=== PATIENT | male | born 1960 | race Caucasian/White ===

== ENCOUNTER 2021-03-06 10:36 | Emergency (ER) | payer MEDICARE, MEDICAID, SELFPAY ==
[2021-03-06 11:00] VITALS: BP 113/79; PULSE 81; RESP 16; TEMP 36.6; O2SAT 97
--- NOTE | 2021-03-06 12:19 | ED.SKABFB ---
HPI - Skin/Abscess/Foreign Bdy General Chief complaint: Skin/Abscess/Foreign Body Stated complaint: sore inside his rt thigh/rash Time Seen by Provider: 03/06/21 10:42 Source: patient Mode of arrival: wheelchair Limitations: dementia and other (Developmental disabled, autism) History of Present Illness HPI narrative: 60-year-old man with a history of type 2 diabetes mellitus brought in today by his caregiver for a rash in his groin area, on his penis, and an ulceration on his right medial leg. This has been present for a few weeks. Patient is incontinent of urine. He has had no fever, vomiting, diarrhea, difficulty breathing, appetite change or abdominal pain. Family states that he frequently does not complain of pain when he has issues. His incontinence occurs mostly while he is wearing Depends. complaint: rash and lesion Onset (ago): week(s) Tetanus up to date: unsure Location: buttocks and genitals Severity: moderate Relieving factors: none Exacerbating factors: none Associated symptoms: denies other symptoms Treatments prior to arrival: OTC topical medication Related Data Home Medications Medication Instructions Recorded Confirmed Humulin R Regular U-100 Insuln See Rx Instructions .ROUTE .COMPLEX 03/06/21 03/06/21 Sentry 1 tablet PO DAILY 03/06/21 03/06/21 atorvastatin 20 mg PO DAILY 03/06/21 03/06/21 clopidogrel 75 mg PO DAILY 03/06/21 03/06/21 docusate sodium 100 cap PO DAILY 03/06/21 03/06/21 insulin glargine [Lantus Solostar 18 unit SUBCUT HS 03/06/21 03/06/21 U-100 Insulin] lisinopril 5 mg PO DAILY 03/06/21 03/06/21 metformin 500 mg PO BID 03/06/21 03/06/21 Allergies Allergy/AdvReac Type Severity Reaction Status Date / Time No Known Allergies Allergy Verified 03/06/21 13:01 Review of Systems Review of Systems: ROS unobtainable: Yes other (Disabled, denies any complaints. Family denies any other symptoms.) [facility]LY [facility] Past Medical History Medical History Autism Dementia Gout Hyperlipidemia Hypertension Type 2 diabetes mellitus Social History Social History (Updated 03/06/21 @ 13:33 by Brayden Steele MD) Smoking status: Never smoker Alcohol intake: never Substance use: never Living arrangements: with family Exam Const: General: healthy appearing, no acute distress and alert HENMT: Head: normal to inspection Mouth: Yes moist mucous membranes Eyes: Conjunctivae: conjunctivae normal Pupils: Equal, round and reactive pupils present EOM: EOMs intact bilaterally Resp: Effort & Inspection: normal respiratory effort Auscultation: clear to auscultation bilaterally, no rales, no rhonchi and no wheezes Cardio: Rate: regular rate Rhythm: regular rhythm Heart sounds: no murmurs GI: GI Palp: Yes Soft to palpation, Yes Tenderness to palpation present (GI) (Mild suprapubic tenderness. Palpable bladder.), No Guarding due to palpation present (GI) and No Rigid due to palpation Auscultation: normal bowel sounds : Other: Diffuse erythema of the medial upper thighs, suprapubic region, penis and medial buttocks with satellite lesions. Medial right upper thigh shows a 2.5 cm diameter ulceration with a dry necrotic base. There is no induration. It is mildly tender. Skin: General skin exam: normal color, no jaundice and no pallor Neuro: General: patient oriented x3, moves all extremities and no focal motor deficits Speech: normal speech Gait exam (Neuro): Normal gait present Extrem: General: normal to inspection and no clubbing, cyanosis or edema Psych: Appearance: grossly normal and well kempt Mental Status: mental status grossly normal Affect: normal affect Attitude: cooperative Thought content: Yes Normal thought content present Course Vital Signs Vital signs: Vital Signs Temperature 36.6 C 03/06/21 11:00 Pulse Rate 81 03/06/21 11:00 Respiratory Rate 16 03/06/21 11:00 Blood Pressure 113/79 03/06/21 11:0
[2021-03-06 13:01] LABS: Add Urine Microscopic? YES; Appearance Urine Clear (Clear); Bilirubin Urine Negative (Negative); Blood Urine Negative (Negative); Color Urine Light Yellow (Yellow); Glucose Urine UA 3+ (Negative); Ketones Urine 1+ (Negative); Leukocyte Esterase Ur Negative (Negative); Nitrate Urine Negative (Negative); Protein Urine Negative (Negative); Urobilinogen Urine 0.2 mg/dL (0.2-1.0)
[2021-03-06 13:11] LABS: Bacteria Urine Trace /hpf; RBC Urine None seen /hpf (0-2); WBC Urine None seen /hpf (0-3)
[2021-03-06 14:04] VITALS: BP 142/93; PULSE 98; RESP 20; O2SAT 98
--- NOTE | 2021-03-06 14:35 | PC.NURSE ---
RN ASSISTED PT TO CAR AND INTO CAR. TOLERATED WELL.
== END 2021-03-06 14:20 | disposition home or self-care (01) ==
PROVIDERS: Emergency Provider Emergency Medicine; PCP Family Medicine
DX: B37.2 Candidiasis of skin and nail (principal); L98.491 Non-pressure chronic ulcer of skin of other sites limited to breakdown of skin; R32 Unspecified urinary incontinence; E78.5 Hyperlipidemia, unspecified; I10 Essential (primary) hypertension; E11.9 Type 2 diabetes mellitus without complications
CPT/HCPCS: 81001; 87086; 87088; 99283

== ENCOUNTER 2021-11-17 19:01 | Observation (INO) | payer MEDICARE, MEDICAID, SELFPAY ==
[2021-11-17] VITALS (7 sets, daily range): BP systolic 92–129; BP diastolic 62–73; PULSE 94–118; RESP 20–28; TEMP 36.9; O2SAT 80–95
--- NOTE | ~2021-11-17 | CT_ITS ---
EXAMINATION: CT soft tissue neck wo con DATE: 11/17/2021 20:32 INDICATION: Difficulty swallowing TECHNIQUE: Computed tomography (CT) of the neck was performed without intravenous contrast. The dose- length product (DLP) was 230.28 mGy-cm. Automated exposure control and iterative reconstruction techn ique were employed. COMPARISON: None FINDINGS: The examination is limited without intravenous contrast. No radiopaque foreign body is iden tified in the esophagus. There is questionable wall thickening of the upper esophagus. There are no p athologically enlarged lymph nodes in the neck. Moderate cervical spondylosis is noted. 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 IMPRESSION: 1. Questionable wall thickening of the upper esophagus. Direct visualization is recommended. Reviewed, dictated and finalized at location F.
--- NOTE | ~2021-11-17 | CT_ITS ---
EXAMINATION: CT diagnostic chest wo con DATE: 11/17/2021 20:31 INDICATION: Difficulty swallowing, concern for aspiration or esophageal foreign body. TECHNIQUE: Computed tomography (CT) of the chest was performed without intravenous contrast. The dose -length product (DLP) was 230.28 mGy-cm. Automated exposure control and iterative reconstruction tech [employer] were employed. COMPARISON: None FINDINGS: The examination is limited by the absence of intravenous contrast. There are patchy nodular , tree-in-bud, and groundglass opacities throughout the lungs, worst in the lower lobes. In the media l aspect of the right lower lobe, there are confluent airspace opacities with some areas of cavitatio n. There is no pleural effusion or pneumothorax. There are mildly enlarged mediastinal and bilateral hilar lymph nodes The heart size is normal. There is moderate thoracic spondylosis. There are mild co mpression deformities of the T10 and T12 vertebral bodies. A stone is present in the nondistended gal lbladder. A healed left-sided rib fracture is noted. No esophageal foreign body is identified. There is questionable wall thickening of the upper esophagus. IMPRESSION: 1. Findings consistent with multifocal pneumonia. Areas of cavitation are seen in the medial aspect o f the right lower lobe which may be related to pneumonia however malignancy can't be obscured. Follow -up CT after appropriate therapy and pneumonia treatment is recommended. 2. Mild mediastinal and hilar lymphadenopathy, likely reactive. 3. Questionable wall thickening of the upper esophagus. Direct visualization is recommended. Reviewed, dictated and finalized at location F. IMPRESSION: 1. Findings consistent with multifocal pneumonia. Areas of cavitation are seen in the medial aspect of the right lower lobe which may be related to pneumonia however malignancy can't be obscured. Follow-up CT after appropriate therapy an d pneumonia treatment is recommended. 2. Mild mediastinal and hilar lymphadenopathy, likely reactive. 3. Questionable wall thickening of the upper esophagus. Direct visualization is recommended.
--- NOTE | 2021-11-17 19:33 | ECG_ITS ---
Measurements Intervals [place] Rate: 100 P: 73 [place]: 126 QRS: 65 QRSD: 86 T: 56 QT: 341 QTc: 440 Interpretive Statements SINUS TACHYCARDIA OTHERWISE NORMAL ECG NO PREVIOUS ECG AVAILABLE FOR COMPARISON Electronically Signed On 11-18-2021 11:31:06 CDT by Roel Ambriz M.D.
[2021-11-17] MEDS: SODIUM CHLORIDE 0.9% IV 1,000 ML 999 ML IV CONT ×2 (19:47→21:15)
[2021-11-17 20:11] LABS: Base Excess ABG 1.1 mmol/L (0-2); HCO3 ABG 24.8 mmol/L (23-29); Oxygen Content ABG 14.7 %vol (16.0-22.0); Oxygen Saturation ABG 96.5 % (95-97); PCO2 ABG 35.8 mmHg (35-45); PO2 ABG 91.7 mmHg (80-90); Total Hemoglobin 10.8 g/dL (12.0-18.0); pH ABG 7.46 (7.35-7.45)
[2021-11-17 20:12] LABS: Device NASAL CANNULA; Modified Allen's Test Pass; Site Drawn RIGHT RADIAL
[2021-11-17 20:16] LABS: Hematocrit 29.7 % (40.0-54.0); Hemoglobin 10.3 g/dL (14.0-18.0); Mean Corpuscular HGB Conc 34.7 g/dL (32.0-36.0); Mean Corpuscular Hemoglobin 29.9 pg (27.0-31.0); Mean Corpuscular Volume 86.1 fL (78.0-102.0); Mean Platelet Volume 11.8 fl (8.7-11.0); Platelet Count Result 437 K/mm3 (150-420); Red Blood Count 3.45 M/mm3 (4.70-6.10); Red Cell Distribution Width 12.1 % (11.6-14.4); White Blood Count 9.6 K/mm3 (4.8-10.8)
--- NOTE | 2021-11-17 20:19 | ED.FEVER ---
HPI - Fever General Chief Complaint: Fever Stated Complaint: fever Time Seen by Provider: 11/17/21 19:03 Source: patient, family and RN notes reviewed Mode of arrival: wheelchair Limitations: no limitations History of Present Illness MD elicited complaint: weakness Exacerbating factors: nothing Relieving factors: nothing Associated symptoms: abdominal pain, nausea and vomiting Related Data Home Medications Medication Instructions Recorded Confirmed Humulin R Regular U-100 Insuln See Rx Instructions .ROUTE .COMPLEX 03/06/21 11/17/21 Sentry 1 tablet PO DAILY 03/06/21 11/17/21 atorvastatin 20 mg PO DAILY 03/06/21 11/17/21 clopidogrel 75 mg PO DAILY 03/06/21 11/17/21 docusate sodium 100 cap PO DAILY 03/06/21 11/17/21 insulin glargine [Lantus Solostar 18 unit SUBCUT HS 03/06/21 11/17/21 U-100 Insulin] lisinopril 5 mg PO DAILY 03/06/21 11/17/21 metformin 500 mg PO BID 03/06/21 11/17/21 Allergies Allergy/AdvReac Type Severity Reaction Status Date / Time No Known Allergies Allergy Verified 11/17/21 19:53 Review of Systems Review of Systems: All systems reviewed & are unremarkable except as noted in HPI and below PMFSH Past Medical History Medical History (Updated 11/18/21 @ 01:13 by Rekha Pang MD) Autism Dementia Gout Hyperglycemia due to diabetes mellitus Hyperlipidemia Hypertension Pneumonia Type 2 diabetes mellitus Social History Social History Smoking status: Never smoker Alcohol intake: never Substance use: never Exam Const: General: no acute distress and alert Nutritional Appearance: thin Orientation/consciousness: patient oriented x3 Limitations: no limitations HENMT: Ears: external ears normal, TM's normal bilaterally and EAC's normal General nose exam: Normal external nose present and Normal nares present Face and sinus: normal facial exam and sinuses nontender Mouth: Yes moist mucous membranes Eyes: Conjunctivae: conjunctivae normal Pupils: Equal, round and reactive pupils present EOM: EOMs intact bilaterally Neck: Neck: normal visual inspection and no lymphadenopathy Chest: Chest palpation & inspection: normal inspection of the chest Resp: Effort & Inspection: normal respiratory effort Auscultation: clear to auscultation bilaterally Cardio: Rate: tachycardic Rhythm: regular rhythm GI: GI Palp: Yes Soft to palpation and No Tenderness to palpation present (GI) Auscultation: normal bowel sounds : General: Yes bladder normal to palpation and Yes no CVA tenderness Male General Exam: Yes normal external exam Back/Spine/Pelvis: Back: no CVA tenderness Skin: General skin exam: normal color Neuro: General: patient oriented x3, moves all extremities, no meningeal signs, no focal motor deficits and CN's II-XI intact bilaterally Extrem: General: normal to inspection and no pedal edema Psych: Appearance: well kempt Attitude: cooperative Thought content: Yes other (pt has the dementia, but was communicative in the ED. family gave hx.) Course FINANCIAL SYSTEMS ANALYST/PA Physician Supervision Pt was ill but stable in the ED. no acute chest pain or SOB. Pt was d/w Hospitalist FINANCIAL SYSTEMS ANALYST Ms Mckeon and accepted for admission: see her orders. Vital Signs Vital signs: Vital Signs Temperature 36.9 C 11/17/21 19:20 Pulse Rate 117 H 11/17/21 19:20 Respiratory Rate 28 H 11/17/21 19:20 Blood Pressure 92/62 L 11/17/21 19:20 Pulse Oximetry 80 L 11/17/21 19:20 Temperature 36.9 C 11/17/21 19:20 Pulse Rate 88 11/18/21 00:10 Respiratory Rate 20 11/18/21 00:10 Blood Pressure 131/72 11/18/21 00:10 Pulse Oximetry 96 11/18/21 00:10 MDM - Fever Lab Data Result diagrams: 11/17/21 20:03 11/17/21 23:56 Labs: Lab Results 11/17/21 11/17/21 11/17/21 Range/Units 20:03 20:03 20:03 WBC 9.6 (4.8-10.8) K/mm3 RBC 3.45 L (4.70-6.10) M/mm3 Hgb 10.3 L (14.0-18.0) g/dL Hct 29.7 L
[2021-11-17 20:41] LABS: Lactic Acid Reflex 1.6 mmol/L (0.4-2.0)
[2021-11-17 20:44] LABS: Alanine Aminotransferase 15 U/L (16-63); Albumin Level 2.1 g/dL (3.4-5.0); Alkaline Phosphatase 117 U/L (46-116); Anion Gap 7 mmol/L (8-16); Aspartate Amino Transferase 15 U/L (15-37); Bilirubin,Total 0.3 mg/dL (0.00-1.00); Blood Urea Nitrogen 42 mg/dL (7-18); Calcium 8.9 mg/dL (8.5-10.1); Carbon Dioxide 27 mmol/L (21-32); Chloride 100 mmol/L (98-108); Estimated CRCL calculation 44 ml/min; Estimated Glomerular Filt Rate 54; Potassium 4.3 mmol/L (3.5-5.1); Sodium 134 mmol/L (136-145); Total Protein 6.9 g/dL (6.4-8.2); Troponin I 9.9 ng/L (0.00-60.4)
[2021-11-17 20:58] LABS: Glucose 583 mg/dL (70-99); Osmolality Calculated 315 mOsm/kg (285-295)
[2021-11-17 21:02] LABS: Influenza A QL RT-PCR Negative (Negative); Influenza B QL RT-PCR Negative (Negative); SARS-CoV-2 RNA PCR Negative (Negative)
[2021-11-17 21:24] LABS: Platelet Clumps Present; Platelet Estimate Increased (Adequate)
[2021-11-17 21:25] LABS: Lymphocytes Absolute Manual 1.05 K/mm3 (1.1-4.5); Lymphocytes Percent Manual 11 % (18-44); Monocytes Absolute Manual 0.38 K/mm3 (0.1-0.90); Monocytes Percent Manual 4 % (3-9); Toxic Granulation Present (NORMAL)
[2021-11-17 21:27] LABS: Neutrophils Percent Manual 85 % (46-73)
[2021-11-17 21:34] LABS: Magnesium 1.9 mg/dL (1.8-2.4)
[2021-11-17 21:35] LABS: Acetone Negative (Negative)
--- NOTE | 2021-11-17 21:39 | PC.NURSE ---
Hospitalist from [place] returned call and is talking with Dr. Pang.
[2021-11-17 21:44] LABS: Total Cells Counted 100
[2021-11-17] MEDS: INSULIN HUMAN REGULAR (*BKC) 100 UNITS/ML 6 UNITS IV PUSH ×2 (22:15→23:18)
[2021-11-17] MEDS: INSULIN REG 100 UNITS/100 ML 100 UNITS/100 ML BAG 10.5 UNITS IV CONT (22:27)
[2021-11-17 22:33] LABS: Glucose Point of Care > 450 mg/dl (65-105)
[2021-11-17 23:21] LABS: Glucose Point of Care 375 mg/dl (65-105)
[2021-11-17 23:37] LABS: Appearance Urine Clear (Clear); Color Urine Yellow (Yellow); Glucose Urine UA 3+ (Negative); Ketones Urine Negative (Negative); Protein Urine Negative (Negative)
[2021-11-17 23:38] LABS: Add Urine Microscopic? YES; Bilirubin Urine Negative (Negative); Blood Urine Negative (Negative); Leukocyte Esterase Ur Negative LEU/UL (Negative); Nitrate Urine Negative (Negative); Urobilinogen Urine 0.2 mg/dL (0.2-1.0)
[2021-11-17 23:44] LABS: Squamous Epithelial Cell Urine Many /hpf (Few)
[2021-11-17 23:45] LABS: Bacteria Urine 1+ /hpf
[2021-11-18] VITALS (11 sets, daily range): BP systolic 103–131; BP diastolic 60–72; PULSE 75–90; RESP 17–22; TEMP 36.1–36.5; O2SAT 91–96; BMI 19.5
[2021-11-18 00:17] LABS: Alkaline Phosphatase 112 U/L (46-116); Anion Gap 9 mmol/L (8-16); Aspartate Amino Transferase 11 U/L (15-37); Bilirubin,Total 0.2 mg/dL (0.00-1.00); Blood Urea Nitrogen 34 mg/dL (7-18); Calcium 8.7 mg/dL (8.5-10.1); Carbon Dioxide 26 mmol/L (21-32); Chloride 106 mmol/L (98-108); Estimated CRCL calculation 48 ml/min; Estimated Glomerular Filt Rate > 60; Glucose 195 mg/dL (70-99); Osmolality Calculated 304 mOsm/kg (285-295); Potassium 3.4 mmol/L (3.5-5.1); Sodium 141 mmol/L (136-145); Total Protein 6.9 g/dL (6.4-8.2)
[2021-11-18 00:22] LABS: Alanine Aminotransferase < 6 U/L (16-63)
[2021-11-18 01:40] LABS: Glucose Point of Care 143 mg/dl (65-105)
--- NOTE | 2021-11-18 02:15 | PC.NURSE ---
Spoke to Varsha Stratton NP to clarify orders; New orders given at this time.
--- NOTE | 2021-11-18 02:25 | PC.NURSE ---
Varsha Stratton NP, notified to clarify orders; New orders given at this time.
[2021-11-18] MEDS: SODIUM CHLORIDE 0.9% IV 1,000 ML 100 ML IV CONT (02:38)
[2021-11-18] MEDS: methylPREDNISolone SOD SUCC 125 MG VIAL 60 MG IV PUSH (02:49)
--- NOTE | 2021-11-18 02:54 | PC.NURSE ---
Pt given solumedrol 60 mg IVP as ordered.
--- NOTE | 2021-11-18 02:59 | PC.NURSE ---
Patient admitted to room 208 from the ER, is alert and oriented to person, denies pain, instructed monorail car operator rodarte use and to ring for help.
[2021-11-18 04:08] LABS: Glucose Point of Care 176 mg/dl (65-105)
[2021-11-18] MEDS: IPRATROPIUM 0.5 MG/ALBUTEROL SULFATE 2.5 MG AMPUL.NEB 3 ML INHALATION ×2 (05:50→11:51)
[2021-11-18 07:36] LABS: Glucose Point of Care 266 mg/dl (65-105)
[2021-11-18] MEDS: PANTOPRAZOLE SODIUM IV 40 MG VIAL IV PUSH (09:07)
[2021-11-18] MEDS: ENOXAPARIN 40 MG/0.4 ML SYRINGE SUB-Q (09:12)
[2021-11-18] MEDS: methylPREDNISolone SOD SUCC 40 MG VIAL IV PUSH (09:12)
[2021-11-18] MEDS: CLOPIDOGREL BISULFATE 75 MG TABLET PO (09:13)
[2021-11-18] MEDS: guaiFENesin 12 HR 600 MG TABCR PO (09:13)
[2021-11-18] MEDS: DOCUSATE SODIUM 100 MG CAPSULE PO (09:13)
[2021-11-18] MEDS: BENZONATATE 100 MG CAPSULE 200 MG PO (09:13)
[2021-11-18] MEDS: ATORVASTATIN 10 MG TABLET 20 MG PO (09:13)
[2021-11-18] MEDS: lisinopriL 5 MG TABLET PO (09:13)
--- NOTE | 2021-11-18 10:05 | PM.SD2 ---
Same Day Admit/Disch: HPI History of Present Illness Chief complaint: fever Narrative: Maurice Hobbs is a 61 year old male that presented to emergency department with complaints weakness and fever. Patient has a past medical history of autism, dementia, gout, hyperglycemia due to diabetes mellitus, hyperlipidemia, hypertension, pneumonia and type 2 diabetes. Patient is a poor historian all information obtained from medical records. Patient is unaware of why he is here at our hospital. Based off labs it appears that patient's blood sugar was greater than 450. Based off orders it appears the patient was on a insulin drip and given 12 units of insulin IV push. Vital signs 103/70, 84, 17, 97.7, 91% on room air, WBCs 9.6, hemoglobin 10.3, hematocrit 29.7, platelets 437, ABG pH 7.46, CO2 35.8, O2 91.7, bicarb 24.8, sodium 141, potassium 3.4, BUN 34, creatinine 1.21, glucose 583, lactic acid 1.6, magnesium 1.9, AST 11, ALT 6, total bili 0.2, troponin 9.9, UA with bacteria and glucose influenza A&B and COVID negative ,chest x-ray indicates pneumonia with questionable wall thickening of the upper esophagus CT of the soft tissue of the neck also indicates wall thickening of the soft upper esophageal. Patient does have a history of aspirating pneumonia. Patient was admitted for pneumonia, hyperglycemia and esophagitis. Patient received Solu-Medrol patient was not discharged home with Solu-Medrol he does not appear to have any issues with swallowing. His blood sugar was also elevated on admission Solu-Medrol will worsen his condition. I will order a barium swallow on discharge with results going to primary care physician. The patient denies SOB, CP, palpitation, extremity numbness, lightheadedness, dizziness, constipation, diarrhea, chills, or fever. Patient is anxious to discharge. He does not have any complaints at this time. [facility] Past Medical History Medical History (Updated 11/18/21 @ 09:54 by JESSENIA Hein) Autism Dementia Gout Hyperglycemia due to diabetes mellitus Hyperlipidemia Hypertension Pneumonia Type 2 diabetes mellitus Social History Social History Smoking status: Unknown if ever smoked Alcohol intake: unknown Substance use: unknown Substance use type: does not use Spiritual care concerns: No Same Day Admit/Disch: Med Pre-admit Medications Home Medications Medication Instructions Recorded Confirmed Type Humulin R Regular U-100 Insuln See Rx Instructions .ROUTE .COMPLEX 03/06/21 11/17/21 History Lantus Solostar U-100 Insulin 18 unit SUBCUT HS 03/06/21 11/17/21 History Sentry 1 tablet PO DAILY 03/06/21 11/17/21 History atorvastatin 20 mg PO DAILY 03/06/21 11/17/21 History clopidogrel 75 mg PO DAILY 03/06/21 11/17/21 History docusate sodium 100 cap PO DAILY 03/06/21 11/17/21 History lisinopril 5 mg PO DAILY 03/06/21 11/17/21 History metformin 500 mg PO BID 03/06/21 11/17/21 History miconazole nitrate 1 applic TOPICAL BID #42.5 g 03/06/21 11/17/21 Rx albuterol sulfate [Proventil HFA] 2 puff INHALATION QIDRT PRN #1 g 11/18/21 Rx benzonatate 200 mg PO TID #30 cap 11/18/21 Rx guaifenesin [Mucus Relief ER] 600 mg PO Q12HR #30 tablet 11/18/21 Rx levofloxacin 750 mg PO DAILY 7 Days #7 tablet 11/18/21 Rx pantoprazole 20 mg PO HS 28 Days #28 tablet 11/18/21 Rx Exam Narrative: GENERAL: This is a well-nourished, well-developed patient, in no apparent distress. HEAD: normocephalic, atraumatic. EYES: PERRL. Sclera clear/white. Vision is grossly intact. EARS: External ears normal, auditory canals clear and without drainage, TMs normal without perforation. Hearing grossly intact. NOSE: External nose normal with no obvious nasal discharge, nares without redness, no rhinorrhea. THROAT: Mucous membranes moist, posterior pharynx clear. NECK: Neck supple, non-tender without lymphadenopathy, masses or thyromegaly. CARDIOVASCULAR: Regular rate and rhythm without mu
[2021-11-18 11:32] LABS: Glucose Point of Care 425 mg/dl (65-105)
[2021-11-18 12:48] LABS: Glucose Point of Care 362 mg/dl (65-105)
--- NOTE | 2021-11-18 13:15 | PC.NURSE ---
Discharge packet reviewed with pt's Baltazar DUFF. All questions answered. Pt transported via wheelchair and assisted into private vehicle.
--- NOTE | 2021-11-20 11:28 | PC.NURSE ---
POA states she received and understood the discharge instructions. She questioned if pt had swallowing issues while here. Intake of meals relayed to POA. No other comments.
== END 2021-11-18 13:05 | disposition home or self-care (01) ==
LOC: CHSED 19:05 → CHS2ND 11-18 01:13
PROVIDERS: Admitting Provider Internal Medicine; Emergency Provider Emergency Medicine; PCP Physician Assistant; Visit Provider Internal Medicine
DX: J18.9 Pneumonia, unspecified organism (principal); R13.10 Dysphagia, unspecified; E11.65 Type 2 diabetes mellitus with hyperglycemia; I10 Essential (primary) hypertension; E78.5 Hyperlipidemia, unspecified; M10.9 Gout, unspecified; F84.0 Autistic disorder; F03.90 Unspecified dementia, unspecified severity, without behavioral disturbance, psychotic disturbance, mood disturbance, and anxiety; Z20.822 Contact with and (suspected) exposure to COVID-19
CPT/HCPCS: 36415; 36600; 51701; 70490; 71250; 80053; 81001; 82010; 82805; 82948; 83605; 83735; 84484; 85025; 87040; 87081; 87502; 87880; 93005; 94640; 96361; 96365; 96366; 96367; 96372; 96375; 96376; 99285; A9270; C9113; C9803; G0378; J0696; J1650; J1815; J1956; J2920; J2930; J3370; J7030; U0003; U0005

== ENCOUNTER 2022-02-08 16:33 | Inpatient (IN) | payer MEDICARE, MEDICAID, SELFPAY ==
--- NOTE | ~2022-02-08 | XR_ITS ---
XR chest 1V portable 02/08/2022 17:24 Indication: Chest pain with weakness Procedure: AP portable chest Comparison: No prior studies for comparison. Findings: Heart size normal. There is left basilar airspace disease, compatible with pneumonia. No pl eural effusion, edema or pneumothorax. No acute osseous abnormality. Impression: 1: Left basilar airspace disease, compatible with pneumonia. Reviewed, dictated and finalized at location A. Impression: 1: Left basilar airspace disease, compatible with pneumonia.
[2022-02-08 16:58] VITALS: BP 136/77; PULSE 72; RESP 16; TEMP 36.3; O2SAT 96
--- NOTE | 2022-02-08 17:10 | ECG_ITS ---
Measurements Intervals [place] Rate: 72 P: 68 NE: 136 QRS: 72 QRSD: 94 T: 67 QT: 390 QTc: 427 Interpretive Statements SINUS RHYTHM WITH SINUS ARRHYTHMIA MINIMAL Q WAVES- INFERIOR LEADS BORDERLINE ECG Electronically Signed On 02-08-2022 20:58:54 CDT by Brian Pop D.O.
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
[2022-02-08 17:30] LABS: Basophils Absolute Auto 0.04 K/mm3 (0.00-0.10); Basophils Percent Auto 0.5 % (0.0-1.0); Eosinophils Absolute Auto 0.12 K/mm3 (0.02-0.50); Eosinophils Percent Auto 1.5 % (1.0-6.0); Hemoglobin 11.9 g/dL (14.0-18.0); Immature Granulocyte Absolute 0.03 K/mm3 (0.00-0.00); Immature Granulocyte Percent A 0.4 % (0.0-0.0); Lymphocytes Absolute Auto 2.27 K/mm3 (1.10-4.50); Lymphocytes Percent Auto 29.3 % (18.0-42.0); Mean Corpuscular Hemoglobin 30.5 pg (27.0-31.0); Mean Corpuscular Volume 87.2 fL (78.0-102.0); Mean Platelet Volume 10.8 fl (8.7-11.0); Monocytes Absolute Auto 0.56 K/mm3 (0.10-0.90); Monocytes Percent Auto 7.2 % (2.0-11.0); Neutrophils Absolute Auto 4.7 K/mm3 (1.7-7.2); Neutrophils Percent Auto 61.1 % (50.0-70.0); Platelet Count Result 312 K/mm3 (150-420); Red Cell Distribution Width 13.2 % (11.6-14.4); White Blood Count 7.8 K/mm3 (4.8-10.8)
[2022-02-08 17:34] LABS: Glucose Point of Care 354 mg/dl (65-105)
[2022-02-08 17:52] LABS: Alanine Aminotransferase 19 U/L (16-63); Albumin Level 3.2 g/dL (3.4-5.0); Alkaline Phosphatase 93 U/L (46-116); Anion Gap 9 mmol/L (8-16); Aspartate Amino Transferase 12 U/L (15-37); Bilirubin,Total 0.2 mg/dL (0.00-1.00); Blood Urea Nitrogen 23 mg/dL (7-18); Calcium 8.5 mg/dL (8.5-10.1); Carbon Dioxide 26 mmol/L (21-32); Chloride 100 mmol/L (98-108); Estimated Glomerular Filt Rate > 60; Glucose 352 mg/dL (70-99); Osmolality Calculated 297 mOsm/kg (285-295); Potassium 4.4 mmol/L (3.5-5.1); SARS-CoV-2 Ag Negative (Negative); Sodium 135 mmol/L (136-145); Total Protein 6.6 g/dL (6.4-8.2)
--- NOTE | 2022-02-08 18:27 | PC.NURSE ---
Taylor from [facility] called back, states she spoke with her supervisor gas meter repair and does not have much info on the patient's status of long term placement, only that pascale the pillowcase sewer is not able to be reached at this time and she will have her call the patient's family member who has been taking care of him first thing in the morning.
[2022-02-08 19:38] LABS: Add Urine Microscopic? YES; Appearance Urine Clear (Clear); Bilirubin Urine Negative (Negative); Blood Urine Negative (Negative); Color Urine Yellow (Yellow); Glucose Urine UA 3+ (Negative); Ketones Urine Negative (Negative); Leukocyte Esterase Ur Negative LEU/UL (Negative); Nitrate Urine Negative (Negative); Protein Urine Negative (Negative); Specific Grav Ur >= 1.030 (1.010-1.020); Urobilinogen Urine 0.2 mg/dL (0.2-1.0); pH Urine 5.5 (5.0-8.0)
[2022-02-08 19:45] LABS: Bacteria Urine None seen /hpf; Mucus Urine Rare /lpf; RBC Urine 0-2 /hpf (0-2); Squamous Epithelial Cell Urine Few /hpf (Few); WBC Urine 0-3 /hpf (0-3)
[2022-02-08 21:02] LABS: Glucose Point of Care 314 mg/dl (65-105)
--- NOTE | 2022-02-08 21:02 | PC.NURSE ---
Patient admitted to room 206 from the ER, is alert and oriented with no c/o pain.
[2022-02-08 21:03] VITALS: BMI 21.4
[2022-02-09] VITALS: BP 148/80; PULSE 64; RESP 16; TEMP 36.6; O2SAT 94
[2022-02-09 07:29] LABS: Glucose Point of Care 225 mg/dl (65-105)
[2022-02-09 08:00] VITALS: BP 128/70; PULSE 68; RESP 18; TEMP 36.1; O2SAT 96
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
[2022-02-09] MEDS: ENOXAPARIN 40 MG/0.4 ML SYRINGE SUB-Q (08:28)
[2022-02-09] MEDS: lisinopriL 5 MG TABLET PO (08:40)
[2022-02-09] MEDS: ATORVASTATIN 10 MG TABLET 20 MG PO (08:40)
[2022-02-09] MEDS: CLOPIDOGREL BISULFATE 75 MG TABLET PO (08:41)
[2022-02-09] MEDS: metFORMIN HCL 500 MG TABLET PO (08:41)
[2022-02-09] MEDS: CITALOPRAM HYDROBROMIDE 10 MG TABLET PO (08:41)
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
[2022-02-09] MEDS: glipiZIDE 2.5 MG TABLET PO (09:59)
[2022-02-09 11:57] LABS: Glucose Point of Care 225 mg/dl (65-105)
--- NOTE | 2022-02-09 15:49 | PC.NURSE ---
1500 pt discharged to [facility] from [facility]. [facility] sent with them. pharm sent enough of oral meds to last the weekend.
--- NOTE | 2022-02-12 12:44 | PC.NURSE ---
[facility] states they received the discharge instructions and have no issues.
== END 2022-02-09 15:00 | DRG 923 ==
LOC: CHSED 19:11 → CHS2ND 19:14
PROVIDERS: Admitting Provider Internal Medicine; Emergency Provider Emergency Medicine; PCP Physician Assistant; Visit Provider Internal Medicine
DX: E11.65 Type 2 diabetes mellitus with hyperglycemia (principal); I10 Essential (primary) hypertension; M10.9 Gout, unspecified; F84.0 Autistic disorder; F03.90 Unspecified dementia, unspecified severity, without behavioral disturbance, psychotic disturbance, mood disturbance, and anxiety; Z20.822 Contact with and (suspected) exposure to COVID-19; T76.01XA Adult neglect or abandonment, suspected, initial encounter; E78.5 Hyperlipidemia, unspecified
CPT/HCPCS: 36415; 71045; 80053; 81001; 82948; 85025; 87426; 93005; 99285; A9270; C9803; J1650; J1815